=== PATIENT | female | born 1980 | race Caucasian/White ===

== ENCOUNTER 2022-06-05 13:21 | Emergency (ER) | payer SELFPAY ==
[2022-06-05 13:38] VITALS: BP 159/104; PULSE 115; RESP 24; TEMP 38.3; O2SAT 95; BMI 32.9
[2022-06-05 13:42] VITALS: TEMP 36.8
--- NOTE | 2022-06-05 13:49 | CRLHL7_ITS ---
For Patients: As a result of the Century Cures Act, medical imaging exams and procedure reports are released immediately into your electronic medical record. You may view this report before your referring provider. If you have questions, please contact your health care provider. INDICATION: Shortness of breath TECHNIQUE: Chest radiograph 2 views COMPARISON: None FINDINGS: The sensitivity and specificity of the exam are moderately limited by the patient`s body habitus. Mediastinum: The mediastinum is normal in appearance. The heart silhouette is normal in size and morphology. Lung: Bilateral hyperinflation is present and suggestive of moderate pulmonary emphysema. No sign of pleural effusion seen. No pneumothorax is identified. Bone and Soft tissue: Unremarkable for age. IMPRESSION: 1. Bilateral hyperinflation is present and suggestive of moderate pulmonary emphysema. Dictated by: Maksim Rodgers MD @ 06/05/2022 14:40:27 (Electronically Signed)
[2022-06-05] MEDS: IPRAT-ALBUT 0.5-2.5 MG/3 ML NEB 1 NEB IH (14:40)
[2022-06-05] MEDS: predniSONE 10 MG TABLET 50 MG PO (14:40)
--- NOTE | 2022-06-05 14:44 | ED_ITS ---
HPI - General Adult General Chief complaint: Shortness of Breath/Dyspnea Stated complaint: Trouble Breathing Time Seen by Provider: 06/05/22 13:47 Source: patient Mode of arrival: ambulatory Limitations: no limitations History of Present Illness HPI narrative: 42-year-old female coming in today complaining shortness of breath for 3 days. States that she had a fever yesterday. Tells me that she has been given al buterol inhaler in the past to use as needed, but has not been diagnosed with asthma. She does smoke half pack cigarettes per day. She denies any chest pain. No headaches or blurry vision. No chills. No nausea or vomiting. She has been coughing on and off, cough is generally dry. She feels short of breath all the time but this is certainly exacerbated by any physical activity. Her inhaler has not been helping. Related Data Home Medications Medication Instructions Recorded Confirmed citalopram 40 mg tablet 40 mg PO 06/05/22 phentermine 30 mg capsule 30 mg PO DAILY 06/05/22 06/05/22 prednisone 20 mg tablet 20 mg 06/05/22 Previous Rx's Medication Instructions Recorded albuterol sulfate 90 mcg/actuation 2 puff inhalation Q4H PRN 02/11/22 aerosol inhaler (ProAir HFA) shortness of breath or wheezing #6.7 grams methylprednisolone 4 mg tablets in See Rx Instructions PO .COMPLEX 06/05/22 a dose pack #21 ea oseltamivir 75 mg capsule (Tamiflu) 75 mg PO BID 5 days #10 caps 06/05/22 Allergies Allergy/AdvReac Type Severity Reaction Status Date / Time penicillin G Allergy Unknown Verified 06/05/22 13:36 Sulfa (Sulfonamide Allergy Unknown Verified 06/05/22 13:36 Antibiotics) Review of Systems Status of ROS: Reports: 10 or more systems reviewed and unremarkable except as noted in History and below [facility] Social History Smoking Status: Current every day smoker What tobacco products do you use: cigarettes Smoking packs per day: 0.5 Smoking cigarettes per day: 10.0 Do you use any of these nicotine containing products: None Second hand tobacco smoke exposure: No How often do you have a drink containing alcohol: 2-3 times a week How many standard drinks containing alcohol do you have on a typical day: 1 or 2 How often do you have six or more drinks on one occasion: Never AUDIT-C Alcohol total score: 3 Non-prescribed substance use: denies use service: No Exam Narrative: Exam Narrative: Well-nourished well-developed patient in no acute distress. Alert and oriented. Answers questions appropriately. Mood and affect are appropriate. Thoughts are goal oriented and rational. No tangential or magical thinking noted. Patient speaks in full sentences without needing to catch their breath. HEENT: Normocephalic atraumatic. Pupils are equally round reactive to light. Extraocular muscles are intact. Conjunctivae are moist without any icterus noted. Moist mucous membranes. Posterior pharynx is normal. Neck is soft without any lymphadenopathy or thyromegaly. No masses are appreciated. Cardiovascular: Heart is regular rate and rhythm S1 and S2 are present without any murmurs. Lungs: Patient has bilateral wheezing. Abdomen: Soft and nontender nondistended with normal bowel sounds. No guarding or rebound. Extremities: Bilateral lower extremities are without edema. Skin: Well perfused without any obvious rashes. Const: Vital Signs, click to edit/add: Vital Signs - 24 hr 06/05/22 13:38 06/05/22 13:42 Temperature 101 F H 98.3 F Pulse Rate [Pulse Oximeter] 115 H Respiratory Rate 24 Blood Pressure [Ri ght Upper Arm] 159/104 H Pulse Oximetry 95 Oxygen Delivery Me thod Room Air Course Course Hospital Course: Patient received a DuoNeb which did help with her symptoms. Chest x-ray was done, did not show any acute infiltrates. Did show hyperinflation. COVID negative, influenza a positive. Vital Signs Vital signs: Initial Vital Signs Temperature 101 F H 06/05/22 13:38 Temperature Source Temporal Artery Scan 06/05/22 13:38 Pulse Rate 115 H 06/05/22 13:38 Pulse Rhythm 06/05/22 13:38 Pulse Strength 3+ Normal 06/05/22 13:38 Respiratory Rate 24 06/05/22 13:38 Blood Pressure 159/104 H 06/05/22 13:38 Blood Pressure Mean 122 06/05/22 13:38 Blood Pressure Position Sitting 06/05/22 13:38 Pulse Oximetry 95 06/05/22 13:38 Oxygen Delivery Method 06/05/22 13:38 Vital Signs Temperature 101 F H 06/05/22 13:38 Pulse Rate 115 H 06/05/22 13:38 Respiratory Rate 24 06/05/22 13:38 Blood Pressure 159/104 H 06/05/22 13:38 Pulse Oximetry 95 06/05/22 13:38 Oxygen Delivery Method 06/05/22 13:38 Temperature 98.3 F 06/05/22 13:42 Pulse Rate 115 H 06/05/22 13:38 Respiratory Rate 24 06/05/22 13:38 Blood Pressure 159/104 H 06/05/22 13:38 Pulse Oximetry 95 06/05/22 13:38 Oxygen Delivery Method 06/05/22 13:38 Medical Decision Making MDM Narrative Medical decision making narrative: 42-year-old female with probable asthma and influenza. Patient is not hypoxic and not meeting criteria for hospitalization. Will treat with prednisone taper and Tamiflu. Lab Data Lab results reviewed: Yes I reviewed the patient's lab results Labs: Lab Results 06/05/22 Range/Units 13:43 SARS-CoV-2 (PCR) Negative SARS-CoV-2 (Negative) Influenza Type A (PCR) POSITIVE PCR FLU A A (Negative) Influenza Type B (PCR) Negative PCR FLU B (Negative) RSV (PCR) Negative PCR RSV (Negative) Imaging Data Chest x-ray: Attestation: I have reviewed the pertinent imaging results. Radiologist's impression: TECHNIQUE: Chest radiograph 2 views COMPARISON: None FINDINGS: The sensitivity and specificity of the exam are moderately limited by the patient`s body habitus. Mediastinum: The mediastinum is normal in appearance. The heart silhouette is normal in size and morphology. Lung: Bilateral hyperinflation is present and suggestive of moderate pulmonary emphysema. No sign of pleural effusion seen. No pneumothorax is identified. Bone and Soft tissue: Unremarkable for age. IMPRESSION: 1. Bilateral hyperinflation is present and suggestive of moderate pulmonary emphysema. Discharge Plan Discharge Clinical Impression: Influenza A, Asthma Patient Disposition: Home, Self-Care Condition: Stable Additional Instructions: Stop the steroid you have been given and start new steroid taper. Start Tamiflu daily as directed. Continue to use your inhaler as needed. Rest as much as you can and stay hydrated. You are contagious until you have been without fever for at least 24 hours without any other medications, such as Tylenol or ibuprofen, on board. Prescriptions: New oseltamivir [Tamiflu] 75 mg capsule 75 mg PO BID 5 Days Qty: 10 0RF methylprednisolone 4 mg tablets,dose pack See Rx Instructions .ROUTE .COMPLEX Qty: 21 0RF Rx Instructions: orally per package directions No Action citalopram 40 mg tablet 40 mg PO Label Comments: TAKE 1 TABLET BY MOUTH DAILY- phentermine 30 mg capsule 30 mg PO DAILY Label Comments: TAKE 1 CAPSULE BY MOUTH DAILY prednisone 20 mg tablet 20 mg Label Comments: TAKE 1 TABLET BY MOUTH TWICE DAILY albuterol sulfate [ProAir HFA] 90 mcg/actuation HFA aerosol inhaler 2 puff inhalation Q4H PRN (Reason: shortness of breath or wheezing) Qty: 6.7 0RF Follow Up/Referrals: Robbie Saenz MD [Primary Care Provider] - Stand Alone Forms: [facility] Info Instructions
[2022-06-05 15:00] LABS: PCR FLU A POSITIVE PCR FLU A (Negative); PCR FLU B Negative PCR FLU B (Negative); PCR RSV Negative PCR RSV (Negative)
[2022-06-05 15:07] LABS: SARS PCR* Negative SARS-CoV-2 (Negative)
[2022-06-05 15:33] VITALS: BP 121/92; PULSE 103; RESP 14; TEMP 36.7
== END 2022-06-05 15:35 | disposition home or self-care (01) ==
LOC: ED 15:20
PROVIDERS: Emergency Provider Family Medicine; PCP Family Medicine
DX: J10.1 Influenza due to other identified influenza virus with other respiratory manifestations (principal); J45.909 Unspecified asthma, uncomplicated
CPT/HCPCS: 71046; 87502; 87634; 87635; 94640; 99284; J7512